=== PATIENT | male | born 1935 | race Caucasian/White ===

== ENCOUNTER 2017-11-19 12:56 | Emergency (ER) | payer OTHER, MEDICARE ==
[~2017-11-19] VITALS: Ht 190.5 cm; Wt 131.5 kg
--- NOTE | 2017-11-19 14:04 | ED GENERAL ADULT ---
History of Present Illness General Chief Complaint: Dizziness Stated Complaint: AFIB/DIZZINESS Source: patient Exam Limitations: no limitations Vital Signs & Intake/Output Vital Signs & Intake/Output Vital Signs Date Time Temp Pulse Resp B/P B/P Pulse O2 O2 Flow FiO2 Mean Ox Delivery Rate 11/19 1709 97.8 65 17 109/72 97 Room Air 11/19 1613 97.5 70 18 114/70 92 Room Air 11/19 1431 73 20 102/58 95 Room Air 11/19 1413 98.6 126 18 100/58 98 Room Air 11/19 1337 98.1 122 20 86/56 93 Room Air ED Intake and Output 11/20 0000 11/19 1200 Intake Total 0 Output Total Balance 0 Intake, Oral 0 Patient 290 lb Weight Weight Estimated Measurement Method Allergies Coded Allergies: Latex, Natural Rubber (Intermediate, SEVERE RASHES 11/19/17) Sulfa (Sulfonamide Antibiotics) (Mild, RASH 11/19/17) nitroglycerin (From NITRO-BID) (Mild, RASH 11/19/17) polymyxin B (Mild, UNKNOWN 11/19/17) trimethoprim (Mild, UNKNOWN 11/19/17) omeprazole (From PRILOSEC) (UNKNOWN 11/19/17) Reconcile Medications Albuterol Sulfate (Ventolin Hfa) 90 MCG HFA.AER.AD 2 PUF INH Q4-6 PRN PRN SHORTNESS OF BREATH (Reported) Amiodarone HCl 200 MG TABLET 0.5 TAB PO Q48 HEART (Reported) Amiodarone HCl 100 MG TABLET 0.5 TAB PO Q48 HEART (Reported) Cranberry Conc/Ascorbic Acid (Cranberry Plus Vitamin C Rust) 4,200 MG-20 MG CAPSULE 1 CAP PO DAILY VITAMIN SUPPORT (Reported) Cyanocobalamin (Vitamin B-12) 1,000 MCG TABLET 1 TAB PO DAILY VITAMIN SUPPORT (Reported) Dabigatran Etexilate Mesylat (Pradaxa) 150 MG CAPSULE 1 CAP PO BID BLOOD THINNER (Reported) Levothyroxine Sodium 50 MCG TABLET 1 TAB PO DAILY AC THYROID (Reported) Multivitamin (Daily Multiple Vitamin) 1 EACH TABLET 1 TAB PO DAILY VITAMIN SUPPORT (Reported) Pantoprazole Sodium 40 MG TABLET.DR 1 TAB PO DAILY GI (Reported) Paroxetine HCl 20 MG TABLET 1 TAB PO DAILY MENTAL HEALTH (Reported) Tamsulosin HCl 0.4 MG CAP.ER.24H 1 CAP PO DAILY PROSTATE (Reported) Triage Note: RECEIVED 81 YO MALE WITH HX OF AFIB AND COPD C/O DIZZINESS SINCE THIS AM GETTING UP, WORSE STANDING. PT REPORTS IRREGULAR PULSE WHICH IS NOT NORMAL AND GETTING SWEATY. EKG DONE UPON ARRIVAL TO THE ED, SHOWS AFIB WITH RVR, HR 122. B/P IN TRIAGE 86/56 Triage Nurses Notes Reviewed? yes Onset: Abrupt Duration: hour(s): Timing: recent history HPI: 11/19/17 2 PM 81-year-old male presents to the emergency department for dizziness and being lightheaded. He says he feels lightheaded when he sits up. He says he has a history of hypertension and paroxysmal A. fib. He's on Pradaxa. He denies any chest pain or shortness of breath. (Juan Antonio Schmidt DO) Past History Travel History Traveled to [place] past 21 day No Medical History Any Pertinent Medical History? see below for history Neurological: NONE EENT: NONE Cardiovascular: AFIB Respiratory: COPD Gastrointestinal: GERD Hepatic: NONE Renal: benign prost hyperplasia Musculoskeletal: NONE Psychiatric: NONE Endocrine: hypothyroidism Blood Disorders: NONE Cancer(s): NONE Surgical History Surgical History: non-contributory Psychosocial History What is your primary language Hebrew Tobacco Use: Never used Family History Hx Contributory? No (Juan Antonio Schmidt DO) Review of Systems Review of Systems Constitutional: Denies: fever. EENTM: Reports: no symptoms. Respiratory: Denies: short of breath. Cardiovascular: Reports: palpitations. Denies: chest pain. GI: Reports: no symptoms. Genitourinary: Reports: no symptoms. Musculoskeletal: Reports: no symptoms. Skin: Reports: no symptoms. Neurological/Psychological: Reports: no symptoms. Hematologic/Endocrine: Reports: no symptoms. Immunologic/Allergic: Reports: no symptoms. (Juan Antonio Schmidt DO) Physical Exam Physical Exam General Appearance: alert, awake, anxious, moderate distress Head: atraumatic, normal appearance Eyes: Bilateral: normal appearance, PERRL, EOMI. Ears, Nose, Throat: normal pharynx, normal ENT inspection Neck: normal inspection, supple Respiratory: normal breath sounds, chest non-tender, no respiratory distress Cardiovascular: irregularly irregular Peripheral Pulses: 3+ radial (R), 3+ radial (L) Gastrointestinal: soft, non-tender Back: normal inspection Extremities: pedal edema Neurologic/Psych: no motor/sensory deficits, awake, alert, oriented x 3 Skin: rash Core Measures ACS in differential dx? No CVA/TIA Diagnosis: No Sepsis Present: No Sepsis Focused Exam Completed? No (Juan Antonio Schmidt DO) Progress Differential Diagnoses I considered the following diagnoses in my evaluation of the patient: [A. fib orthostatic hypotension anemia probably acute coronary syndrome] Initial ED EKG: RAPID A. FIB (Juan Antonio Schmidt DO) Plan of Care: Orders Procedure Date/time Status TROPONIN LEVEL 11/19 1540 Complete EKG 11/19 1420 Active THYROID STIMULATING HORMONE 11/19 1339 Complete TROPONIN LEVEL 11/19 1339 Complete COMPREHENSIVE METABOLIC PANEL 11/19 1339 Complete CBC WITHOUT DIFFERENTIAL 11/19 1339 Complete EKG 11/19 1258 Active Laboratory Tests 11/19/17 1603: Troponin I 0.02 11/19/17 1430: RBC 4.70, MCV 91.6, MCH 31.3 H, MCHC 34.1, RDW 14.2, MPV 7.9, Gran % 81.7 H, Lymphocytes % 10.3 L, Monocytes % 7.3, Eosinophils % 0.5, Basophils % 0.2, Absolute Granulocytes 8.9 H, Absolute Lymphocytes 1.1 L, Absolute Monocytes 0.8 H, Absolute Eosinophils 0.1, Absolute Basophils 0 11/19/17 1408: Anion Gap 14, Estimated GFR 45 L, BUN/Creatinine Ratio 25.3 H, Glucose 165 H, Calcium 8.6, Total Bilirubin 0.8, AST 35, ALT 21, Alkaline Phosphatase 48, Troponin I 0.02, Total Protein 6.6, Albumin 3.6, Globulin 3.0, Albumin/Globulin Ratio 1.2, TSH 1.020 Comments: Patient broke to sinus rhythm. His repeat EKG shows normal sinus rhythm with nonspecific ST-T changes. Discussed with Dr. Zimmerman, increases amiodarone to 200 mg every day. Patient will follow-up with his community development planner in the office. (France MARROQUIN,Jermaine Galindo) Departure Departure Condition: Stable Clinical Impression Primary Impression: Rapid atrial fibrillation Referrals: Unknown (PCP/Family) Departure Forms: Customer Survey General Discharge Information Comments The patient was signed out to Dr. Hough at 2 PM. (Juan Antonio Schmidt DO) Departure Disposition: HOME OR SELF CARE Additional Instructions: Increase your amiodarone to 200 mg every day. Follow-up with her community development planner. Return if symptoms return or for any other concerns. (France MARROQUIN,Jermaine Galindo) Critical Care Note Critical Care Note Critical Care Time: 30-74 min (Juan Antonio Schmidt DO)
[2017-11-19] MEDS ORDERED: PRADAXA150 M2 PO (14:33)
[2017-11-19] MEDS ORDERED: TAMSULOSIN HCL0.4 M1 PO (14:34)
[2017-11-19] MEDS ORDERED: AMIODARONE HCL200 M2 PO (14:35)
[2017-11-19] MEDS ORDERED: AMIODARONE HCL100 M1 PO (14:35)
[2017-11-19] MEDS ORDERED: LEVOTHYROXINE50 MCG PO (14:36)
[2017-11-19] MEDS ORDERED: PAROXETINE HCL20 M1 PO (14:36)
[2017-11-19] MEDS ORDERED: PANTOPRAZOLE SO40 M1 PO (14:36)
[2017-11-19] MEDS ORDERED: DAILY MULTIPLE1 EACH PO (14:37)
[2017-11-19] MEDS ORDERED: VENTOLIN HFA18 GM INH (14:37)
[2017-11-19] MEDS ORDERED: VITAMIN B-121000 MC3 PO (14:38)
[2017-11-19] MEDS ORDERED: CRANBERRY PLUS1 EAC1 PO (14:39)
--- NOTE | 2017-11-19 14:40 | RADIOLOGY REPORT ---
EXAMINATION: XR PORTABLE CHEST CLINICAL INFORMATION: Shortness of breath. COMPARISON: None TECHNIQUE: Portable frontal view of the chest was obtained. FINDINGS: Lungs are symmetrically expanded. Minimal hazy opacity in the medial aspect of each lung base adjacent to pericardiac fat, likely minimal atelectasis. Linear streak of atelectasis in the left lateral base, as well. Probable 3 mm calcified granuloma within the left lung apex. No overt pulmonary consolidation. No pleural effusion or pneumothorax. Cardiac silhouette is normal in size. No cephalization of pulmonary venous flow or interstitial edema. Aortic arch is slightly uncoiled. Bones appear diffusely osteopenic. Mild osteoarthrosis of bilateral glenohumeral joints, high riding humeral heads (suggestive of chronic rotator cuff tears) and intact suture anchors in the greater tuberosity of the left humerus. IMPRESSION: - Minimal atelectasis suspected in lung bases. - No significant cardiopulmonary findings are detected on this single view exam.
[2017-11-19 14:45] LABS: ABSOLUTE BASOPHIL COUNT 0 /CUMM (0.0-0.2); ABSOLUTE EOSINOPHIL COUNT 0.1 /CUMM (0.0-0.7); ABSOLUTE GRANULOCYTE CT 8.9 /CUMM (1.4-6.5); ABSOLUTE LYMPH COUNT 1.1 /CUMM (1.2-3.4); ABSOLUTE MONOCYTE COUNT 0.8 /CUMM (0.10-0.60); BASOPHIL % 0.2 % (0.0-2.0); EOSINOPHIL % 0.5 % (0-5); GRANULOCYTE % 81.7 % (42.2-75.2); MEAN CORPUSCULAR HGB 31.3 PG (27.0-31.0); MEAN CORPUSCULAR HGB CONC 34.1 G/DL (33.0-37.0); MEAN CORPUSCULAR VOLUME 91.6 FL (80.0-94.0); MEAN PLATELET VOLUME 7.9 FL (7.4-10.4); PLATELET COUNT 268 /CUMM (130-400); RBC DISTRIBUTION WIDTH 14.2 % (11.5-14.5); WHITE BLOOD CELL COUNT 10.9 /CUMM (4.8-10.8)
[2017-11-19 17:09] VITALS: BP 109/72
== END 2017-11-19 17:09 ==
LOC: ERH 12:56
PROVIDERS: Physician Assistant Medical
DX: I48.91 Unspecified atrial fibrillation (principal); R42 Dizziness and giddiness; E03.9 Hypothyroidism, unspecified
CPT/HCPCS: 71045; 93005; 93010

== ENCOUNTER 2018-01-19 03:15 | Inpatient (IN) | payer OTHER, MEDICARE ==
[~2018-01-19] VITALS: Ht 188 cm; Wt 132.7 kg
[~2018-01-19 03:15] MED LIST: CRANBERRY PLUS1 EAC1 PO; DAILY MULTIPLE1 EACH PO; LEVOTHYROXINE50 MCG PO; PANTOPRAZOLE SO40 M1 PO; PAROXETINE HCL20 M1 PO; PRADAXA150 M2 PO; TAMSULOSIN HCL0.4 M1 PO; VENTOLIN HFA18 GM INH; VITAMIN B-121000 MC3 PO
--- NOTE | 2018-01-19 03:21 | ED GENERAL ADULT ---
See Addendum History of Present Illness General Chief Complaint: General Adult Stated Complaint: BIBA AFIB Source: patient, family Exam Limitations: no limitations Vital Signs & Intake/Output Vital Signs & Intake/Output Vital Signs Date Time Temp Pulse Resp B/P B/P Pulse O2 O2 Flow FiO2 Mean Ox Delivery Rate 01/19 0856 96 Nasal 2.0L Cannula 01/19 0826 98.0 68 20 134/78 95 Nasal 2.0L Cannula 01/19 0635 98.2 58 18 142/77 95 Nasal 2.0L Cannula 01/19 0503 61 20 122/78 98 01/19 0322 98.1 116 18 125/75 93 Nasal 2.0L Cannula Allergies Coded Allergies: Latex, Natural Rubber (Intermediate, SEVERE RASHES 11/19/17) Sulfa (Sulfonamide Antibiotics) (Mild, RASH 11/19/17) nitroglycerin (From NITRO-BID) (Mild, RASH 11/19/17) polymyxin B (Mild, UNKNOWN 11/19/17) trimethoprim (Mild, UNKNOWN 11/19/17) omeprazole (From PRILOSEC) (UNKNOWN 11/19/17) Triage Nurses Notes Reviewed? yes HPI: Mr. Foley is a 82-year-old male with a past medical history of atrial fibrillation, COPD, BIBA to the ED complaining of palpitations and racing heartbeat. On arrival, he was stable, AAOx3, offering no acute complains. He was found to be in a-fib, HR 100-110s, no chest pain though increasing SOB with minimal exertion. He does endorse paroxysmal nocturnal dyspnea, sleeps propped up with two pillows. Pt denies lightheadedness, LOC, focal neurologic deficit. Of note pt was recently discharged from [facility] for E.coli UTI where he received IV antibiotics as per pt. He offers no other acute complains. Pt takes amiodarone, dabigatran and diltiazem. (Fred Snell MD,[facility]) Onset: Abrupt Duration: hour(s): Timing: recent history (Juan Antonio Schmidt DO) Reconcile Medications Albuterol Sulfate (Ventolin Hfa) 90 MCG HFA.AER.AD 2 PUF INH Q4-6 PRN PRN SHORTNESS OF BREATH (Reported) Amiodarone HCl 400 MG TABLET 1 TAB PO DAILY AFIB (Reported) Cefuroxime Axetil (Cefuroxime) 500 MG TABLET 1 TAB PO BID UTI (Reported) Cranberry Conc/Ascorbic Acid (Cranberry Plus Vitamin C Sftgl) 4,200 MG-20 MG CAPSULE 1 CAP PO DAILY VITAMIN SUPPORT (Reported) Cyanocobalamin (Vitamin B-12) 1,000 MCG TABLET 1 TAB PO DAILY VITAMIN SUPPORT (Reported) Dabigatran Etexilate Mesylat (Pradaxa) 150 MG CAPSULE 1 CAP PO BID BLOOD THINNER (Reported) Lactobacillus Acidophilus (Acidophilus) 1 EACH CAPSULE 2 CAP PO DAILY PROBIOTIC Levothyroxine Sodium 50 MCG TABLET 1 TAB PO DAILY AC THYROID (Reported) Multivitamin (Daily Multiple Vitamin) 1 EACH TABLET 1 TAB PO DAILY VITAMIN SUPPORT (Reported) Pantoprazole Sodium 40 MG TABLET.DR 1 TAB PO DAILY GI (Reported) Paroxetine HCl 20 MG TABLET 1 TAB PO DAILY MENTAL HEALTH (Reported) Tamsulosin HCl 0.4 MG CAP.ER.24H 1 CAP PO DAILY PROSTATE (Reported) (Richard Garza MD) Past History Travel History Traveled to [place] past 21 day No Medical History Any Pertinent Medical History? see below for history Neurological: NONE EENT: NONE Cardiovascular: AFIB Respiratory: COPD Gastrointestinal: GERD Hepatic: NONE Renal: benign prost hyperplasia Musculoskeletal: NONE Psychiatric: NONE Endocrine: hypothyroidism Blood Disorders: NONE Cancer(s): NONE Surgical History Surgical History: non-contributory Psychosocial History What is your primary language Montserratian Family History Hx Contributory? No (Fred Snell MD,[place]) Review of Systems Review of Systems Constitutional: Reports: no symptoms. EENTM: Reports: no symptoms. Respiratory: Reports: no symptoms. Cardiovascular: Reports: see HPI. GI: Reports: no symptoms. Genitourinary: Reports: no symptoms. Musculoskeletal: Reports: no symptoms. Skin: Reports: no symptoms. Neurological/Psychological: Reports: no symptoms. Hematologic/Endocrine: Reports: no symptoms. Immunologic/Allergic: Reports: no symptoms. All Other Systems: Reviewed and Negative (Fred Snell MD,[place]) Physical Exam Physical Exam General Appearance: well developed/nourished, no apparent distress, alert, awake , comfortable Head: atraumatic, normal appearance Eyes: Bilateral: normal appearance, PERRL, EOMI. 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 Yes CVA/TIA Diagnosis: No Sepsis Present: No Sepsis Focused Exam Completed? No (Fred Snell MD,[place]) Progress Differential Diagnoses I considered the following diagnoses in my evaluation of the patient: [Afib] Plan of Care: Orders Procedure Date/time Status CBC WITHOUT DIFFERENTIAL 01/20 0600 Active BASIC ELECTROLYTES PLUS BUN&CR 01/20 0600 Active Consistent Carbohydrate 1 01/19 L Active Heart Healthy Diet 01/19 B Complete TROPONIN LEVEL 01/19 1400 Active EKG 01/19 1400 Active ECHOCARDIOGRAM 01/19 1222 Active Pathway - chart 01/19 1219 Active House Staff 01/19 1219 Active Patient Data 01/19 1219 Active Patient Data 01/19 1113 Active Patient Data 01/19 0929 Active BLOOD CULTURE 01/19 0849 Active OXYGEN SETUP (GEN) 01/19 0847 Active Saline Lock 01/19 0847 Active Admit to inpatient 01/19 0847 Active Vital Signs 01/19 0847 Active Activity/Ambulation 01/19 0847 Active Code Status 01/19 0847 Active TROPONIN LEVEL 01/19 0730 Complete Intake & Output 01/19 0437 Active TROPONIN LEVEL 01/19 0347 Complete D-DIMER 01/19 0347 Complete COMPREHENSIVE METABOLIC PANEL 01/19 0347 Complete CBC WITHOUT DIFFERENTIAL 01/19 0347 Complete EKG 01/19 0316 Active VTE Mechanical Prophylaxis 01/19 UNK Active Telemetry/Assembler Corncob Pipes 01/19 UNK Active Hemoccult 01/[address] CHEST WO IV CONTRAST 01/19 UNK Active Current Medications Sig/Kennedy Start time Last Medication Dose Stop Time Status Admin Diltiazem HCl 120 MG DAILY 01/19 1232 UNVr (Cardizem CD) Albuterol Sulfate 2 PUF Q4-6 PRN PRN 01/19 1230 AC (Ventolin) Amiodarone HCl 400 MG DAILY 01/19 1230 UNVr (Cordarone) Omeprazole 40 MG DAILY AC 01/19 1230 UNVr (Prilosec) Dabigatran 150 MG BID 01/19 1229 UNVr (PRADAXA) Levothyroxine Sodium 0.05 MG DAILY AC 01/19 122 AC (Synthroid) Paroxetine HCl 20 MG DAILY 01/19 1225 UNVr (Paxil) Tamsulosin HCl 0.4 MG DAILY 01/19 1225 AC (Flomax) Cyanocobalamin 1,000 MCG DAILY 01/19 1224 AC (Vitamin B12) Laboratory Tests 01/19/18 0725: Troponin I < 0.01 01/19/18 0400: D-Dimer High Sensitivty 315 H, CBC w Diff NO MAN DIFF REQ, RBC 3.79 L, MCV 91.7, MCH 31.0, MCHC 33.8, RDW 14.7 H, MPV 7.0 L, Gran % 66.6, Lymphocytes % 22.8, Monocytes % 7.4, Eosinophils % 2.7, Basophils % 0.5, Absolute Granulocytes 4.7, Absolute Lymphocytes 1.6, Absolute Monocytes 0.5, Absolute Eosinophils 0.2, Absolute Basophils 0 01/19/18 0347: Anion Gap 8, Estimated GFR > 60, BUN/Creatinine Ratio 20.0, Glucose 121 H, Calcium 8.3 L, Total Bilirubin 1.0, AST 46, ALT 70, Alkaline Phosphatase 37, Troponin I < 0.01, Total Protein 6.5, Albumin 3.5, Globulin 3.0, Albumin/ Globulin Ratio 1.2 Microbiology 01/19 0915 BLOOD: Blood Culture - RECD 01/19 0857 BLOOD: Blood Culture - RECD 82 y/o M with PMH of a fib and COPD, comes in to the ED c/o palpitations, and feelings of heart racing. He spontaneously converted to NSR. First set of troponin was negative, initial EKG showed a fib with a rate of 100-110s, he is on a surveillance system monitor. Patient does endorse increasing SOB on minimal exertion. His age-adjusted d-dimer is negative; he is on cardizem, amiodarone and dabigatran. Initial ED EKG: AFIB (Fred Snell MD,[facility]) Differential Diagnoses I considered the following diagnoses in my evaluation of the patient: [A. fib, acute coronary syndrome, room air embolism, pneumothorax, other dysrhythmia] (Juan Antonio Schmidt DO) Diagnostic Imaging: Viewed by Me: Radiology Read. Discussed w/RAD: Radiology Read. CXR Impression: Small pleural effusions. Increased hazy right basilar opacity may represent atelectasis or pneumonia. Rhythm Strip: normal sinus rhythm (Richard Garza MD) Departure Departure Disposition: HOME OR SELF CARE Condition: Stable Clinical Impression Primary Impression: Atrial fibrillation Referrals: Unknown Additional Instructions: Please follow up with your PCP about this ED visit. Please follow up with your data review specialist within 1 week. Should symptoms reappear or worsen, please return to the Emergency Department. Departure Forms: Customer Survey General Discharge Information (Fred Snell MD,[facility]) Departure Comments 01/19/18 I've seen and personally examined the patient and I agree with the medical assistant internal medicine's evaluation above. 82-year-old man with past medical history of paroxysmal A. fib who is scheduled to have a stress test with his data review specialist this week. He says he woke up with rapid heart rate. His heart rate was 110. He denies any chest pain or shortness of breath. Currently he is in A. fib at a heart rate of 104. Repeat EKG shows sinus rhythm. Age-adjusted d-dimer is negative. Assuming serial troponins are negative. He may follow-up with his data review specialist as scheduled. The patient was signed out to Dr. Garza at 7 AM. (Juan Antonio Schmidt DO) Departure Prescriptions: Current Visit Scripts Lactobacillus Acidophilus (Acidophilus) 2 CAP PO DAILY #28 TAB Resident Co-Sign Statement Statement: ED Attending supervision documentation- x I saw and evaluated the patient. I have also reviewed all the pertinent lab results and diagnostic results. I agree with the findings and the plan of care as documented in the Resident's documentation. [] I have reviewed the ED Record and agree with the Resident's documentation. [] Additions or exceptions (if any) to the Resident's note and plan are summarized below: [] (Richard Garza MD) Critical Care Note Critical Care Note Critical Care Time: 30-74 min (Juan Antonio Schmidt DO) ED Attending Observation Initial Observation Note: I have seen and personally examined AMBER FOLEY on 01/19/18 at 0415. I agree with the current emergency department documentation. The disposition (admission or discharge) is uncertain at this time, he needs a period of observation for the following reason(s): The ED Nurse caring for this patient has been personally informed as to what the patient is being observed for. (Fred Snell MD,[facility])
[2018-01-19] MEDS ORDERED: CEFUROXIME500 MG PO (04:03)
[2018-01-19 04:07] LABS: ABSOLUTE BASOPHIL COUNT 0 /CUMM (0.0-0.2); ABSOLUTE EOSINOPHIL COUNT 0.2 /CUMM (0.0-0.7); ABSOLUTE GRANULOCYTE CT 4.7 /CUMM (1.4-6.5); ABSOLUTE LYMPH COUNT 1.6 /CUMM (1.2-3.4); ABSOLUTE MONOCYTE COUNT 0.5 /CUMM (0.10-0.60); BASOPHIL % 0.5 % (0.0-2.0); EOSINOPHIL % 2.7 % (0-5); GRANULOCYTE % 66.6 % (42.2-75.2); HEMATOCRIT 34.7 % (42-52); MEAN CORPUSCULAR HGB CONC 33.8 G/DL (33.0-37.0); MEAN CORPUSCULAR VOLUME 91.7 FL (80.0-94.0); PLATELET COUNT 302 /CUMM (130-400); RBC DISTRIBUTION WIDTH 14.7 % (11.5-14.5); RED BLOOD CELL CT 3.79 /CUMM (4.70-6.10); WHITE BLOOD CELL COUNT 7.1 /CUMM (4.8-10.8)
--- NOTE | 2018-01-19 04:28 | RADIOLOGY REPORT ---
EXAMINATION: XR CHEST CLINICAL INFORMATION: Palpitations COMPARISON: 11/19/2017 TECHNIQUE: 2 views of the chest were obtained. FINDINGS: The lungs are well expanded. Increased hazy right basilar opacity. Small pleural effusions. No pneumothorax. Degenerative changes throughout the spine. The cardiomediastinal silhouette is unremarkable. IMPRESSION: Small pleural effusions. Increased hazy right basilar opacity may represent atelectasis or pneumonia.
--- NOTE | 2018-01-19 10:43 | History & Physical ---
Pipo MARROQUIN,Ana Rosa 01/19/18 1043: General Information and HPI MD Statement: I have seen and personally examined AMBER FOLEY and documented this H&P. The patient is a 82 year old M who presented with a patient stated chief complaint of palpitations, increasing shortness of breath Source of Information: patient, old records Exam Limitations: no limitations History of Present Illness: This is a 82-year-old male with a past medical history significant for A. fib on amiodarone, pradaxa, and diltiazem, COPD, BPH, hypothyroidism on levothyroxine, GERD that presents with complaints of palpitations and increasing shortness of breath with minimal exertion. Both of these complaints have been going on for a while but have been worsening recently. The patient last saw his biomedical engineering supervisor on Friday and they had an echo and stress test planned for this week. However as the patient had continuing and worsening symptoms, he was worried and came to the ED before he can get his test done. The patient states that prior to this year, he used to be in and out of A. fib and was unaware. However, now, he states that he feels a "anderson up my body from right chest to my neck and head and frequent racing heart". The patient sees biomedical engineering supervisor Alex Maharaj out of [place] and Channing Wilson as his squeezer operator out of [place]. In addition the patient's palpitations and shortness of breath on exertion, he also complains of shortness of breath at night requiring the use of 2 pillows. The patient is not usually on any home oxygen. The patient was here in the emergency room for similar complaints a few months ago, was found to have converted to normal sinus rhythm. The patient has had many instances where he has been in and out of A. fib. The patient was recently admitted to [facility] for sepsis secondary to UTI, found to be Escherichia coli and treated with cefuroxime 500 mg twice a day once discharged. At that time the patient was put on diltiazem again after it had been stopped for some time, patient unsure as to why. The patient complains that he has had a right-sided headache all of last week and the past Friday 1 bout of left-sided chest and shoulder discomfort. He also complains of an ongoing dry cough with chronic postnasal drip. The patient states that he has been on a low carb diet for the past 3 weeks and lost 7 pounds during the first 2 weeks of it. The patient does not have diabetes. The patient denies any hematuria or hematochezia/melena. Of note, the patient experienced a rectal bleed 3-4 months ago, was seen by Moshe Lehman M.D., strainer cleaner out of [place], who admitted him. The patient did not have any transfusion but was noted to go into A. fib while there. Colonoscopy was done and found diverticulosis. Leading up to this admission, the patient had had a few falls, describes preceding dizziness. The patient currently describes some mild right-sided abdominal pain that is worse on palpation. He has previously had hernia surgery 13 years ago. The patient's biomedical engineering supervisor Dr. Rodríguez is located at [phone] [address] his squee[address] operator Dr[address] Wilson is located at [phone] The patient denies any dizziness, lightheadedness, loss of consciousness, focal neuro deficits. He usually ambulates with a cane secondary to his knee arthritis. The patient smoked for 20 years 1 pack per week but quit about 20 years ago. He has never done any illicit drugs and drinks about 1 bottle of beer and one mixed drink a month. Allergies/Medications Allergies: Coded Allergies: Latex, Natural Rubber (Intermediate, SEVERE RASHES 11/19/17) Sulfa (Sulfonamide Antibiotics) (Mild, RASH 11/19/17) nitroglycerin (From NITRO-BID) (Mild, RASH 11/19/17) polymyxin B (Mild, UNKNOWN 11/19/17) trimethoprim (Mild, UNKNOWN 11/19/17) omeprazole (From PRILOSEC) (UNKNOWN 11/19/17) Home Med list Albuterol Sulfate (Ventolin Hfa) 90 MCG HFA.AER.AD 2 PUF INH Q4-6 PRN PRN SHORTNESS OF BREATH (Reported) Amiodarone HCl 400 MG TABLET 1 TAB PO DAILY AFIB (Reported) Cefuroxime Axetil (Cefuroxime) 500 MG TABLET 1 TAB PO BID UTI (Reported) Cranberry Conc/Ascorbic Acid (Cranberry Plus Vitamin C Sftgl) 4,200 MG-20 MG CAPSULE 1 CAP PO DAILY VITAMIN SUPPORT (Reported) Cyanocobalamin (Vitamin B-12) 1,000 MCG TABLET 1 TAB PO DAILY VITAMIN SUPPORT (Reported) Dabigatran Etexilate Mesylat (Pradaxa) 150 MG CAPSULE 1 CAP PO BID BLOOD THINNER (Reported) Lactobacillus Acidophilus (Acidophilus) 1 EACH CAPSULE 2 CAP PO DAILY PROBIOTIC Levothyroxine Sodium 50 MCG TABLET 1 TAB PO DAILY AC THYROID (Reported) Multivitamin (Daily Multiple Vitamin) 1 EACH TABLET 1 TAB PO DAILY VITAMIN SUPPORT (Reported) Pantoprazole Sodium 40 MG TABLET.DR 1 TAB PO DAILY GI (Reported) Paroxetine HCl 20 MG TABLET 1 TAB PO DAILY MENTAL HEALTH (Reported) Tamsulosin HCl 0.4 MG CAP.ER.24H 1 CAP PO DAILY PROSTATE (Reported) Compliance With Home Meds: GOOD Past History Travel History Traveled to [place] past 21 day No Medical History Neurological: NONE EENT: NONE Cardiovascular: AFIB Respiratory: COPD Gastrointestinal: GERD Hepatic: NONE Renal: benign prost hyperplasia Musculoskeletal: NONE Psychiatric: NONE Endocrine: hypothyroidism Blood Disorders: NONE Cancer(s): NONE Surgical History Surgical History: non-contributory Past Family/Social History Family History Relations & Conditions if any Family history was reviewed; no changes noted. Psychosocial History Smoking Status: Former Smoker ETOH Use: denies use Illicit Drug Use: denies illicit drug use Review of Systems Review of Systems Constitutional: Reports: no symptoms. Cardiovascular: Reports: see HPI, palpitations. Respiratory: Reports: cough, short of breath. GI: Reports: abdominal pain. Genitourinary: Reports: no symptoms. Musculoskeletal: Reports: joint pain. Skin: Reports: no symptoms. Neurological/Psychological: Reports: no symptoms. Hematologic/Endocrine: Reports: no symptoms. Exam & Diagnostic Data Last 24 Hrs of Vital Signs/I&O Vital Signs Date Time Temp Pulse Resp B/P B/P Pulse O2 O2 Flow FiO2 Mean Ox Delivery Rate 01/19 1632 Nasal 2.0L Cannula 01/19 1500 98.5 62 20 118/60 96 01/19 1439 97.4 58 20 141/88 95 Nasal 2.0L Cannula 01/19 1338 98.1 62 20 130/76 01/19 1252 98.1 62 20 130/76 95 Nasal 2.0L Cannula 01/19 0856 96 Nasal 2.0L Cannula 01/19 0826 98.0 68 20 134/78 95 Nasal 2.0L Cannula 01/19 0635 98.2 58 18 142/77 95 Nasal 2.0L Cannula 01/19 0503 61 20 122/78 98 01/19 0322 98.1 116 18 125/75 93 Nasal 2.0L Cannula Intake & Output 01/19 1600 01/19 0800 01/19 0000 Intake Total Output Total 300 Balance -300 Output, Urine 300 Patient 192 lb Weight Physical Exam General Appearance Alert, Oriented X3, Cooperative, No Acute Distress Skin No Rashes, No Breakdown, No Significant Lesion Skin Temp/Moisture Exam: Warm/Dry Sepsis Skin Exam (color): Normal for Ethnicity HEENT Atraumatic, PERRLA, EOMI, Mucous Membr. moist/pink Cardiovascular Regular Rate, Normal S1, Normal S2, No Murmurs Lungs Clear to Auscultation, Normal Air Movement Abdomen Normal Bowel Sounds, Soft, mild right sided pain on palpation Neurological Normal Speech Extremities No Clubbing, No Cyanosis, No Edema, Normal Pulses Vascular Normal Pulses, Pulses Symmetrical Last 24 Hrs of Labs/Héctor: Laboratory Tests 01/19/18 1432: Troponin I < 0.01 01/19/18 0725: Troponin I < 0.01 01/19/18 0400: D-Dimer High Sensitivty 315 H, CBC w Diff NO MAN DIFF REQ, RBC 3.79 L, MCV 91.7, MCH 31.0, MCHC 33.8, RDW 14.7 H, MPV 7.0 L, Gran % 66.6, Lymphocytes % 22.8, Monocytes % 7.4, Eosinophils % 2.7, Basophils % 0.5, Absolute Granulocytes 4.7, Absolute Lymphocytes 1.6, Absolute Monocytes 0.5, Absolute Eosinophils 0.2, Absolute Basophils 0 01/19/18 0347: Anion Gap 8, Estimated GFR > 60, BUN/Creatinine Ratio 20.0, Glucose 121 H, Calcium 8.3 L, Total Bilirubin 1.0, AST 46, ALT 70, Alkaline Phosphatase 37, Troponin I < 0.01, Total Protein 6.5, Albumin 3.5, Globulin 3.0, Albumin/ Globulin Ratio 1.2, TSH 1.920, Free T4 1.99 H, Thyroxine (T4) 9.5, Total T3 0.79 L Microbiology 01/19 0915 BLOOD: Blood Culture - RECD 01/19 08 BLOOD: Blood Culture - RECD Assessment/Plan Assessment: This is a 82-year-old male with a past medical history significant for paroxysmal A. fib on amiodarone, pradaxa, and diltiazem, COPD, BPH, hypothyroidism on levothyroxine, GERD that presents with complaints of palpitations and increasing shortness of breath with minimal exertion. The patient also complained of a dry cough and a right headache during last week. The patient was supposed to have a cardiac workup done this week with his regular biomedical engineering supervisor. The patient notes a recent admission at [facility] for sepsis secondary to UTI, discharged on cefuroxime 500 mg twice a day. At that time he was restarted on diltiazem after having been off of it for some time. 3-4 months ago he had an admission at [place] for rectal bleed, found to have diverticulosis. Denies any recent melena or hematochezia. EKG showed afib at a rate of 116 no evidence of ACS, repeat EKG showed that he had reverted to NSR. CXR showed a small pleural effusion, increased hazy right basilar opacity that represents atelectasis or pneumonia. His vitals in the ED were found to be temperature 98.1, heart rate 116, respiratory rate 18, blood pressure 127/75, 93% oxygen saturation on room air. Hb was found to have decreased from 14.7 to 11.7 over the past 2 months. MCV 91. Age adjusted ddimer was negative. His K was 3.4. Troponins x2 were found to be negative. Assessment -Palpitations secondary to paroxysmal A. fib on amiodarone, diltiazem, pradaxa -Recent admission for sepsis secondary to UTI, discharged on cefuroxime 500 mg twice a day -Normocytic anemia likely secondary to acute GI bleed -Dry cough and potential evidence of pneumonia on chest x-ray Plan -Patient admitted to telemetry for evaluation and treatment -We have placed a cardiac consult with Dr. Stroud's group -I have placed a call to patient's regular biomedical engineering supervisor and am awaiting callback , see phone numbers in HPI -Echocardiogram -1 more set of EKG and troponins at 2 PM -Continue patient's pradaxa, amiodarone 400 mg daily and diltiazem CD 120 mg -Continue supplemental O2 for now -Monitor BEP and replete electrolytes including magnesium -CT of the chest contrast with plan to treat pneumonia if found, if no evidence of pneumonia continue the patient's cefuroxime 500 mg twice a day -Thyroid function tests -Guaiac stools and DC Pradaxa if guaiac positive Patient is full code Consistent carbohydrate diet (patient requested, does not have diabetes) Patient is full code As Ranked By This Provider Problem List: 1. Atrial fibrillation Core Measures/Misc (02/23) Acute Coronary Syndrome ACS Diagnosis: No Congestive Heart Failure Congestive Heart Failure Diagnosis No Cerebrovascular Accident CVA/TIA Diagnosis: No VTE (View Protocol) VTE Risk Factors Acute Medical Illness No Mechanical VTE Prophylaxis d/t N/A MechProphylax Ordered No VTE Pharm Prophylaxis d/t NA PharmProphylax ordered Sepsis (View protocol) Sepsis Present: No If YES complete Sepsis Event Note If YES complete Sepsis Event Note Ratna Clark MD 01/19/18 1258: Core Measures/Misc (02/23) Sepsis (View protocol) If YES complete Sepsis Event Note If YES complete Sepsis Event Note Attending MD Review Statement Attending Statement Attending MD Statement: examined this patient, discuss w/resident/PA/[employer] ENC[employer]ER, agreed w/resident/PA/[employer]ING ENCASER, reviewed EMR data (avail), discussed with nursing, reviewed images, amended to note Attending Assessment/Plan: 82-year-old male with past medical history significant for paroxysmal A. fib, history of diverticulitis, history of GERD, hypertension, history of GI bleeding in the past, history of gout, hypothyroidism, recently admitted to [facility] with UTI and bacteremia and got treated with initially IV and then discharged on oral antibiotics cefuroxime, presented to the emergency room earlier in the morning as he was feeling rushing of blood from his chest into his neck, palpitations and racing heartbeat. Patient states that whenever he goes into A. fib he develops this kind of sensations. Patient does have history of paroxysmal A. fib and he goes in and out. He was also evaluated by his biomedical engineering supervisor during his stay in [facility] which was last week and at that point his amiodarone dose was increased to 400 mg daily and he was also started on Cardizem CD 120 mg daily. Patient said that he was scheduled to get echocardiogram as well as stress test performed by his biomedical engineering supervisor as an outpatient. Patient was found to have atrial fibrillation with somewhat rapid response upon initial presentation to the emergency room but did convert back to sinus rhythm. Chest x-ray showed possibility of atelectasis versus pneumonia and patient received IV antibiotics. He did complain of dry cough over the weekend but denies any sputum production. He did complain of progressively feeling short of breath over the course of few weeks. He does complain of dyspnea on exertion. He does not use oxygen at home. He denies any chest pain. He did complain of mild abdominal discomfort especially in the right side. Vital Signs Date Time Temp Pulse Resp B/P B/P Pulse O2 O2 Flow FiO2 Mean Ox Delivery Rate 01/19 1252 98.1 62 20 130/76 95 Nasal 2.0L Cannula 01/19 0856 96 Nasal 2.0L Cannula 01/19 0826 98.0 68 20 134/78 95 Nasal 2.0L Cannula 01/19 0635 98.2 58 18 142/77 95 Nasal 2.0L Cannula 01/19 0503 61 20 122/78 98 01/19 0322 98.1 116 18 125/75 93 Nasal 2.0L Cannula on exam: aox3, nad. cv; s1,s2, rrr resp; decrease bs at b/l bases. abd; soft, mild discomfort on right sided abd palpation, non tender as such, bs+ ext; 1+ edema Laboratory Tests 01/19 01/19 01/19 0725 0400 0347 Chemistry Sodium (137 - 145 mmol/L) 140 Potassium (3.5 - 5.1 mmol/L) 3.4 L Chloride (98 - 107 mmol/L) 102 Carbon Dioxide (22 - 30 mmol/L) 29 Anion Gap (5 - 16) 8 BUN (9 - 20 mg/dL) 18 Creatinine (0.7 - 1.2 mg/dL) 0.9 Estimated GFR (>60 ml/min) > 60 BUN/Creatinine Ratio (7 - 25 %) 20.0 Glucose (65 - 99 mg/dL) 121 H Calcium (8.4 - 10.2 mg/dL) 8.3 L Total Bilirubin (0.2 - 1.3 mg/dL) 1.0 AST (17 - 59 U/L) 46 ALT (21 - 72 U/L) 70 Alkaline Phosphatase (< 127 U/L) 37 Troponin I (<0.11 ng/ml) < 0.01 < 0.01 Total Protein (6.3 - 8.2 g/dL) 6.5 Albumin (3.5 - 5.0 g/dL) 3.5 Globulin (1.9 - 4.2 gm/dL) 3.0 Albumin/Globulin Ratio (1.1 - 2.2 %) 1.2 Coagulation D-Dimer High Sensitivty (0 - 243 ng/ml) 315 H Hematology CBC w Diff NO MAN DIFF REQ WBC (4.8 - 10.8 /CUMM) 7.1 RBC (4.70 - 6.10 /CUMM) 3.79 L Hgb (14.0 - 18.0 G/DL) 11.7 L Hct (42 - 52 %) 34.7 L MCV (80.0 - 94.0 FL) 91.7 MCH (27.0 - 31.0 PG) 31.0 MCHC (33.0 - 37.0 G/DL) 33.8 RDW (11.5 - 14.5 %) 14.7 H Plt Count (130 - 400 /CUMM) 302 MPV (7.4 - 10.4 FL) 7.0 L Gran % (42.2 - 75.2 %) 66.6 Lymphocytes % (20.5 - 51.1 %) 22.8 Monocytes % (1.7 - 9.3 %) 7.4 Eosinophils % (0 - 5 %) 2.7 Basophils % (0.0 - 2.0 %) 0.5 Absolute Granulocytes (1.4 - 6.5 /CUMM) 4.7 Absolute Lymphocytes (1.2 - 3.4 /CUMM) 1.6 Absolute Monocytes (0.10 - 0.60 /CUMM) 0.5 Absolute Eosinophils (0.0 - 0.7 /CUMM) 0.2 Absolute Basophils (0.0 - 0.2 /CUMM) 0 EKG: Did show atrial fibrillation. CXR: IMPRESSION: Small pleural effusions. Increased hazy right basilar opacity may represent atelectasis or pneumonia. A/P: 82-year-old male with past medical history significant for paroxysmal A. fib, history of diverticulitis, history of GERD, hypertension, history of GI bleeding in the past, history of gout, hypothyroidism, recently admitted to [facility] with UTI and bacteremia and got treated with initially IV and then discharged on oral antibiotics cefuroxime will be admitted to telemetry with atrial fibrillation with somewhat rapid ventricular response but now converted to sinus rhythm. It is unclear whether patient went into A. fib because of possibility of pneumonia versus bronchitis or from previous recent infection of UTI and bacteremia. Patient did receive IV antibiotics in the emergency room. Clinical presentation is not consistent with pneumonia. I will do a noncontrast CT chest to see if there is any infiltrate. If patient has pneumonia then he will be treated with IV antibiotics otherwise I will just continue him on his oral antibiotics cefuroxime that he was started at [facility] to complete the course. As noted above, patient's amiodarone dose was increased by his biomedical engineering supervisor Isra Maharaj. His primary care doctor is Dr. Ollie Maldonado. He was also started on Cardizem CD 120 mg which should be continued. Please obtain echocardiogram. Please follow-up on the last set of troponin and please consult cardiology also. H&H is slightly on the lower end, will do guaiac stool. Will continue Pradaxa for now but if stool guaiac positive then we can stop it. Please also check thyroid function tests. Patient also takes levothyroxine which can be continued. DVT prophylaxis: Pradaxa. Patient is a DNR/DNI.
[2018-01-19] MEDS ORDERED: AMIODARONE HCL400 M1 PO (12:28)
[2018-01-19] MEDS ORDERED: ACIDOPHILUS1 EACH PO ×2 (12:31→12:32)
[2018-01-19 15:00] VITALS: BP 118/60
--- NOTE | 2018-01-19 15:35 | CT SCAN REPORT ---
EXAMINATION: CT CHEST WITHOUT CONTRAST CLINICAL INFORMATION: Question pneumonia. COMPARISON: Chest x-ray 01/19/2018. TECHNIQUE: Multidetector volumetric CT imaging of the chest was done. Axial MIP volume rendering provided. Sagittal and coronal reformatted images were obtained. DLP: 606 mGy-cm FINDINGS: LUNGS: Paraseptal emphysema at the apices. Scattered calcified granulomas bilaterally. No suspicious mass lesion. The hazy opacity at the right lung base is caused by a diaphragmatic hernia containing retroperitoneal fat. There is mild compressive atelectasis secondarily. No suspicious mass lesion. MEDIASTINUM: No adenopathy. LAD coronary artery calcium. PLEURA: There is no pleural effusion. No pleural mass or thickening. AXILLA: No lymphadenopathy. UPPER ABDOMEN: Small parapelvic cysts in the left kidney. OSSEOUS STRUCTURES: Degenerative changes in the thoracic spine. There is focal kyphosis in the mid thoracic spine at T8 related to a mild anterior wedge compression deformity that appears chronic. 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 Mild associated atelectasis. No evidence of pneumonia.
[2018-01-19 22:07] VITALS: BP 136/80
[2018-01-20 06:58] VITALS: BP 136/86
[2018-01-20 07:31] LABS: ABSOLUTE BASOPHIL COUNT 0 /CUMM (0.0-0.2); ABSOLUTE EOSINOPHIL COUNT 0.2 /CUMM (0.0-0.7); ABSOLUTE GRANULOCYTE CT 4.6 /CUMM (1.4-6.5); ABSOLUTE LYMPH COUNT 1.4 /CUMM (1.2-3.4); ABSOLUTE MONOCYTE COUNT 0.5 /CUMM (0.10-0.60); BASOPHIL % 0.3 % (0.0-2.0); EOSINOPHIL % 2.7 % (0-5); GRANULOCYTE % 69.3 % (42.2-75.2); HEMATOCRIT 34.2 % (42-52); MEAN CORPUSCULAR HGB CONC 33.9 G/DL (33.0-37.0); MEAN CORPUSCULAR VOLUME 91.6 FL (80.0-94.0); MEAN PLATELET VOLUME 7.5 FL (7.4-10.4); PLATELET COUNT 293 /CUMM (130-400); RBC DISTRIBUTION WIDTH 14.9 % (11.5-14.5); RED BLOOD CELL CT 3.73 /CUMM (4.70-6.10); WHITE BLOOD CELL COUNT 6.6 /CUMM (4.8-10.8)
--- NOTE | 2018-01-20 10:02 | PN- Housestaff ---
Graeme Franz 01/20/18 0948: Subjective Follow-up For: Paroxysmal A. fib Shortness of breath Complaints: no complaints Tele-Events Since Last Visit: Sinus bradycardia and sinus rhythm 56-63 bpm no overnight events Subjective: Review the patient lying comfortably on the bed he reports to have slept very well he denies any chest pain palpitations or shortness of breath overnight. The patient reports that he has been eating and finishing his meals well he has no fevers or chills overnight. His only concern is he was scheduled to have a stress test and echocardiogram as an outpatient and this admission is interfering with that. Review of Systems Constitutional: Denies: chills, fever. Cardiovascular: Denies: chest pain, palpitations. Respiratory: Denies: cough, short of breath. Gastrointestinal: Denies: abdominal pain, nausea, vomiting. Genitourinary: Denies: no symptoms. Musculoskeletal: Denies: no symptoms. Skin: Denies: no symptoms. Objective Last 24 Hrs of Vital Signs/I&O Vital Signs Date Time Temp Pulse Resp B/P B/P Pulse O2 O2 Flow FiO2 Mean Ox Delivery Rate 01/20 0824 66 118/72 01/20 0823 66 118/72 01/20 0658 97.9 64 18 136/86 94 Nasal Cannula 01/20 0000 Nasal 2.0L Cannula 01/19 2207 98.2 60 24 136/80 94 01/19 2158 60 122/86 01/19 1632 Nasal 2.0L Cannula 01/19 1500 98.5 62 20 118/60 96 01/19 1439 97.4 58 20 141/88 95 Nasal 2.0L Cannula 01/19 1338 98.1 62 20 130/76 01/19 1252 98.1 62 20 130/76 95 Nasal 2.0L Cannula Intake & Output 01/20 1600 01/20 0800 01/20 0000 Intake Total 50 450 Output Total 300 Balance 50 150 Intake, Oral 50 450 Output, Urine 300 Patient 280 lb Weight Weight Reported by Patient Measurement Method Physical Exam General Appearance: Alert, Oriented X3, Cooperative, No Acute Distress Skin: No Rashes, No Breakdown Skin Temp/Moisture Exam: Warm/Dry Sepsis Skin Exam (color): Normal for Ethnicity HEENT: Atraumatic, Mucous Membr. moist/pink Neck: Supple, No JVD Cardiovascular: Regular Rate, Normal S1, Normal S2, No Murmurs Lungs: Clear to Auscultation, Normal Air Movement Abdomen: Normal Bowel Sounds, Soft, No Tenderness, OBESE Neurological: Normal Speech, Normal Tone Extremities: No Clubbing, No Cyanosis, MILD EDEMA Current Medications: Current Medications Sig/Kennedy Start time Last Medication Dose Route Stop Time Status Admin Albuterol Sulfate 2 PUF Q4-6 PRN PRN 01/19 1230 AC INH Amiodarone HCl 400 MG DAILY 01/19 1230 AC 01/20 PO 0823 Cefuroxime Sodium 500 MG Q12 01/19 2100 AC 01/20 PO 0824 Cyanocobalamin 1,000 MCG DAILY 01/19 1224 AC 01/20 PO 0823 Dabigatran 150 MG BID 01/19 1229 AC 01/20 PO 0824 Diltiazem HCl 120 MG DAILY 01/19 1232 AC 01/20 PO 0824 Doxycycline Hyclate 100 MG ONCE ONE 01/19 0900 DC 01/19 Sodium Chloride 100 ML IV 01/19 1005 0959 Levothyroxine Sodium 0.05 MG DAILY AC 01/19 1225 AC 01/20 PO 0529 Omeprazole 40 MG DAILY AC 01/19 1230 DC PO Pantoprazole Sodium 0 .STK-MED ONE 01/19 1445 DC IV Pantoprazole Sodium 40 MG DAILY 01/19 1329 AC 01/20 IV 0824 Paroxetine HCl 20 MG DAILY 01/19 1225 AC 01/20 PO 0825 Potassium Chloride 0 .STK-MED ONE 01/19 1327 DC PO Potassium Chloride 40 MEQ ONCE ONE 01/19 1230 DC 01/19 PO 01/19 1231 1338 Tamsulosin HCl 0.4 MG DAILY 01/19 1225 AC 01/20 PO 0824 Last 24 Hrs of Lab/Héctor Results Last 24 Hrs of Labs/Mics: Laboratory Tests 01/20/18 0545: Anion Gap 5, Estimated GFR > 60, BUN/Creatinine Ratio 17.0, CBC w Diff NO MAN DIFF REQ, RBC 3.73 L, MCV 91.6, MCH 31.0, MCHC 33.9, RDW 14.9 H, MPV 7.5, Gran % 69.3, Lymphocytes % 20.8, Monocytes % 6.9, Eosinophils % 2.7, Basophils % 0.3, Absolute Granulocytes 4.6, Absolute Lymphocytes 1.4, Absolute Monocytes 0.5, Absolute Eosinophils 0.2, Absolute Basophils 0 01/19/18 1432: Troponin I < 0.01 Assessment/Plan Assessment: This is a 82-year-old male with a past medical history significant for paroxysmal A. fib on amiodarone, pradaxa, and diltiazem, COPD, BPH, hypothyroidism on levothyroxine, GERD that presents with complaints of palpitations and increasing shortness of breath with minimal exertion. The patient also complained of a dry cough and a right headache during last week. The patient was supposed to have a cardiac workup done this week with his regular generating station mechanic. The patient notes a recent admission at [facility] for sepsis secondary to UTI, discharged on cefuroxime 500 mg twice a day. Paroxysmal A. fib Patient on presentation was tachycardic heart rate of 116 which upon admission changed to normal sinus rhythm and heart rate decreased to normal levels. Overnight patient has been in sinus rhythm and sinus bradycardia heart rate lowest is 56. He received 1 dose of IV rate control medications Cardizem 5 mg. Patient is now on oral home A. fib medication diltiazem CD 120 mg and amiodarone 400 mg. Continue to monitor on the telemetry. This patient is supposed to get an echocardiogram and generating station mechanic consult has been called we will follow-up for those. Hypothyroidism Patient has history of hypothyroidism and is on levothyroxine 0.05 mg which was started upon admission. Thyroid function workup showed TSH normal 1.9 slightly increased T4 1.99 and normal T3 at 0.79. Will continue with levothyroxine at the same dose. Normocytic anemia This patient takes dabigatran 150 mg twice a day. Review of his blood work has shown a significant drop in hemoglobin of around 3 in the past 1 month. We are guaiac in all stools so far patient has not had a bowel movement and reports there was no blood in the last bowel movement. We will continue to follow hemoglobin and guaiac all stools with intention to stop dabigatran if the patient is shown to be having blood in stool. History of urinary tract infection Patient was admitted and treated for UTI at [facility] and is still on oral UTI medication Ceftin 500 mg twice a day. Overnight patient remained afebrile and is on his UTI medication. WBC remains within normal range Problem List: 1. Rapid atrial fibrillation 2. Anemia 3. UTI (urinary tract infection) Pain Ratin Pain Location: None Pain Goal: Remain pain free Pain Plan: Tylenol PRN Tomorrow's Labs & Rationales: CBC continue to trend hemoglobin DVT/Prophylaxis: mechanical, pharmacological Ericka Salguero MD 01/20/18 1102: Attending MD Review Statement Attending Statement Attending MD Statement: examined this patient, discuss w/resident/PA/METAL TANK ERECTOR, agreed w/resident/PA/METAL TANK ERECTOR, reviewed EMR data (avail) Attending Assessment/Plan: Patient is awake, alert, pleasant, funny, cooperative, delightful, and energetic. He was able to walk around the floor with the nurse, becoming mildly short of breath towards the end, but did not have to stop. He currently feels well and has no complaints, denying chest pain, palpitations, lightheadedness, or SOB (which resolved after sitting for 5 seconds). He remains in sinus rhythm. Plan - Continue on telemetry - Follow cardiology recommendations - Continue home medications - DVT PPx
--- NOTE | 2018-01-20 10:20 | Cons- Cardiology ---
General Information and HPI Consulting Request Date of Consult: 01/20/18 Requested By: Ratna Clark MD Reason for Consult: SOB and PAF Source of Information: patient Exam Limitations: no limitations History of Present Illness: The patient is an 82-year-old male with a history of atrial flutter status post ablation, paroxysmal atrial fibrillation on Pradaxa, hypertension, COPD, BPH, hypothyroidism who now presents with palpitations and increasing shortness of breath. Patient states that he was admitted to [place] [facility] a few weeks ago for urinary sepsis. Patient gradually improved. On the day of discharge he developed left shoulder discomfort along with palpitations. He was found to be in atrial fibrillation and his amiodarone was increased and diltiazem was resumed. He was scheduled for an outpatient echo and stress test through Dr. Carol Ann vilchis gun repair clerk in [place]. He states on the day of admission again he developed a flushed feeling which is indicative of his atrial fibrillation. He also noted increasing shortness of breath on minimal exertion and therefore presented to the emergency room for evaluation. He states he does have a history of orthostatic hypotension with syncope. His diltiazem was discontinued but he still had episodes. Workup reportedly was negative. He follows with Dr. Steve vilchis manager hvac as an outpatient. He states that he now feels well and denies any palpitations. No further episodes of chest discomfort. He does have shortness of breath still with minimal exertion. He denies PND orthopnea. He does state he has obstructive sleep apnea but does not utilize CPAP. He does have intermittent edema and wears compression socks. Allergies/Medications Allergies: Coded Allergies: Latex, Natural Rubber (Intermediate, SEVERE RASHES 11/19/17) Sulfa (Sulfonamide Antibiotics) (Mild, RASH 11/19/17) nitroglycerin (From NITRO-BID) (Mild, RASH 11/19/17) polymyxin B (Mild, UNKNOWN 11/19/17) trimethoprim (Mild, UNKNOWN 11/19/17) omeprazole (From PRILOSEC) (UNKNOWN 11/19/17) Home Med List: Albuterol Sulfate (Ventolin Hfa) 90 MCG HFA.AER.AD 2 PUF INH Q4-6 PRN PRN SHORTNESS OF BREATH (Reported) Amiodarone HCl 400 MG TABLET 1 TAB PO DAILY AFIB (Reported) Cefuroxime Axetil (Cefuroxime) 500 MG TABLET 1 TAB PO BID UTI (Reported) Cranberry Conc/Ascorbic Acid (Cranberry Plus Vitamin C Sftgl) 4,200 MG-20 MG CAPSULE 1 CAP PO DAILY VITAMIN SUPPORT (Reported) Cyanocobalamin (Vitamin B-12) 1,000 MCG TABLET 1 TAB PO DAILY VITAMIN SUPPORT (Reported) Dabigatran Etexilate Mesylat (Pradaxa) 150 MG CAPSULE 1 CAP PO BID BLOOD THINNER (Reported) Lactobacillus Acidophilus (Acidophilus) 1 EACH CAPSULE 2 CAP PO DAILY PROBIOTIC Levothyroxine Sodium 50 MCG TABLET 1 TAB PO DAILY AC THYROID (Reported) Multivitamin (Daily Multiple Vitamin) 1 EACH TABLET 1 TAB PO DAILY VITAMIN SUPPORT (Reported) Pantoprazole Sodium 40 MG TABLET.DR 1 TAB PO DAILY GI (Reported) Paroxetine HCl 20 MG TABLET 1 TAB PO DAILY MENTAL HEALTH (Reported) Tamsulosin HCl 0.4 MG CAP.ER.24H 1 CAP PO DAILY PROSTATE (Reported) Current Medications: Current Medications Sig/Kennedy Start time Last Medication Dose Route Stop Time Status Admin Albuterol Sulfate 2 PUF Q4-6 PRN PRN 01/19 1230 AC INH Amiodarone HCl 400 MG DAILY 01/19 1230 AC 01/20 PO 0823 Cefuroxime Sodium 500 MG Q12 01/19 2100 AC 01/20 PO 0824 Cyanocobalamin 1,000 MCG DAILY 01/19 1224 AC 01/20 PO 0823 Dabigatran 150 MG BID 01/19 1229 AC 01/20 PO 0824 Diltiazem HCl 120 MG DAILY 01/19 1232 AC 01/20 PO 0824 Levothyroxine Sodium 0.05 MG DAILY AC 01/19 1225 AC 01/20 PO 0529 Omeprazole 40 MG DAILY AC 01/19 1230 DC PO Pantoprazole Sodium 0 .STK-MED ONE 01/19 1445 DC IV Pantoprazole Sodium 40 MG DAILY 01/19 1329 AC 01/20 IV 0824 Paroxetine HCl 20 MG DAILY 01/19 1225 AC 01/20 PO 0825 Potassium Chloride 0 .STK-MED ONE 01/19 1327 DC PO Potassium Chloride 40 MEQ ONCE ONE 01/19 1230 DC 01/19 PO 01/19 1231 1338 Tamsulosin HCl 0.4 MG DAILY 01/19 1225 AC 01/20 PO 0824 Review of Systems Review of Systems: Eyes no blurred or double vision Ears no deafness or ringing Nose and throat no recurrent sinusitis Lungs per history of present illness Heart per history of present illness Abdomen no nausea vomiting Musculoskeletal occasional muscle and joint pains Psych no anxiety or depression Neuro without recurrent headache or seizures Endocrine no heat or cold intolerance Past History Travel History Traveled to [place] past 21 day No Medical History Blood Transfusion Hx: No Neurological: NONE EENT: NONE, hearing loss, CATARACTS REMOVED Cardiovascular: AFIB Respiratory: COPD Gastrointestinal: GERD Hepatic: NONE Renal: benign prost hyperplasia Musculoskeletal: rheumatoid arthritis Psychiatric: anxiety Endocrine: hypothyroidism Blood Disorders: NONE Cancer(s): MELANOMA REMOVED 2013 TO L.LOWER LIP BULK CLERK/Reproductive: NONE Surgical History Surgical History: non-contributory Psychosocial History Where Do You Live? Home Smoking Status: Former Smoker ETOH Use: denies use Illicit Drug Use: denies illicit drug use Exam & Diagnostic Data Vital Signs and I&O Vital Signs Date Time Temp Pulse Resp B/P B/P Pulse O2 O2 Flow FiO2 Mean Ox Delivery Rate 01/20 0824 66 118/72 01/20 0823 66 118/72 01/20 0658 97.9 64 18 136/86 94 Nasal Cannula 01/20 0000 Nasal 2.0L Cannula 01/19 2207 98.2 60 24 136/80 94 01/19 2158 60 122/86 01/19 1632 Nasal 2.0L Cannula 01/19 1500 98.5 62 20 118/60 96 01/19 1439 97.4 58 20 141/88 95 Nasal 2.0L Cannula 01/19 1338 98.1 62 20 130/76 01/19 1252 98.1 62 20 130/76 95 Nasal 2.0L Cannula Intake & Output 01/20 1600 01/20 0801/20 0000 01/19 1600 01/19 0000 Intake Total 50 450 Output Total 300 300 Balance 50 150 -300 Intake, Oral 50 450 Output, Urine 300 300 Patient 280 lb 192 lb Weight Weight Reported by Patient Measurement Method Physical Exam: Patient is a well-developed well-nourished male appearing in no acute distress HEENT is unremarkable Neck is supple there is no JVD Lungs are clear Heart regular rhythm S1 and S2 are normal no gallops or rubs 1/6 ejection murmur left sternal border Abdomen bowel sounds positive Extremities trace edema Labs/Héctor Results: Laboratory Tests 01/20 01/19 01/19 9423 [id number] Chemistry Sodium (137 - 145 mmol/L) 138 Potassium (3.5 - 5.1 mmol/L) 4.0 Chloride (98 - 107 mmol/L) 102 Carbon Dioxide (22 - 30 mmol/L) 31 H Anion Gap (5 - 16) 5 BUN (9 - 20 mg/dL) 17 Creatinine (0.7 - 1.2 mg/dL) 1.0 Estimated GFR (>60 ml/min) > 60 BUN/Creatinine Ratio (7 - 25 %) 17.0 Troponin I (<0.11 ng/ml) < 0.01 < 0.01 Hematology CBC w Diff NO MAN DIFF REQ WBC (4.8 - 10.8 /CUMM) 6.6 RBC (4.70 - 6.10 /CUMM) 3.73 L Hgb (14.0 - 18.0 G/DL) 11.6 L Hct (42 - 52 %) 34.2 L MCV (80.0 - 94.0 FL) 91.6 MCH (27.0 - 31.0 PG) 31.0 MCHC (33.0 - 37.0 G/DL) 33.9 RDW (11.5 - 14.5 %) 14.9 H Plt Count (130 - 400 /CUMM) 293 MPV (7.4 - 10.4 FL) 7.5 Gran % (42.2 - 75.2 %) 69.3 Lymphocytes % (20.5 - 51.1 %) 20.8 Monocytes % (1.7 - 9.3 %) 6.9 Eosinophils % (0 - 5 %) 2.7 Basophils % (0.0 - 2.0 %) 0.3 Absolute Granulocytes (1.4 - 6.5 /CUMM) 4.6 Absolute Lymphocytes (1.2 - 3.4 /CUMM) 1.4 Absolute Monocytes (0.10 - 0.60 /CUMM) 0.5 Absolute Eosinophils (0.0 - 0.7 /CUMM) 0.2 Absolute Basophils (0.0 - 0.2 /CUMM) 0 01/19 01/19 3960 [id number] Chemistry Sodium (137 - 145 mmol/L) 140 Potassium (3.5 - 5.1 mmol/L) 3.4 L Chloride (98 - 107 mmol/L) 102 Carbon Dioxide (22 - 30 mmol/L) 29 Anion Gap (5 - 16) 8 BUN (9 - 20 mg/dL) 18 Creatinine (0.7 - 1.2 mg/dL) 0.9 Estimated GFR (>60 ml/min) > 60 BUN/Creatinine Ratio (7 - 25 %) 20.0 Glucose (65 - 99 mg/dL) 121 H Calcium (8.4 - 10.2 mg/dL) 8.3 L Total Bilirubin (0.2 - 1.3 mg/dL) 1.0 AST (17 - 59 U/L) 46 ALT (21 - 72 U/L) 70 Alkaline Phosphatase (< 127 U/L) 37 Troponin I (<0.11 ng/ml) < 0.01 Total Protein (6.3 - 8.2 g/dL) 6.5 Albumin (3.5 - 5.0 g/dL) 3.5 Globulin (1.9 - 4.2 gm/dL) 3.0 Albumin/Globulin Ratio (1.1 - 2.2 %) 1.2 TSH (0.270 - 4.200 uIU/mL) 1.920 Free T4 (0.85 - 1.93 ng/dL) 1.99 H Thyroxine (T4) (4.5 - 10.9 ug/dL) 9.5 Total T3 (0.97 - 1.69 ng/mL) 0.79 L Coagulation D-Dimer High Sensitivty (0 - 243 ng/ml) 315 H Hematology CBC w Diff NO MAN DIFF REQ WBC (4.8 - 10.8 /CUMM) 7.1 RBC (4.70 - 6.10 /CUMM) 3.79 L Hgb (14.0 - 18.0 G/DL) 11.7 L Hct (42 - 52 %) 34.7 L MCV (80.0 - 94.0 FL) 91.7 MCH (27.0 - 31.0 PG) 31.0 MCHC (33.0 - 37.0 G/DL) 33.8 RDW (11.5 - 14.5 %) 14.7 H Plt Count (130 - 400 /CUMM) 302 MPV (7.4 - 10.4 FL) 7.0 L Gran % (42.2 - 75.2 %) 66.6 Lymphocytes % (20.5 - 51.1 %) 22.8 Monocytes % (1.7 - 9.3 %) 7.4 Eosinophils % (0 - 5 %) 2.7 Basophils % (0.0 - 2.0 %) 0.5 Absolute Granulocytes (1.4 - 6.5 /CUMM) 4.7 Absolute Lymphocytes (1.2 - 3.4 /CUMM) 1.6 Absolute Monocytes (0.10 - 0.60 /CUMM) 0.5 Absolute Eosinophils (0.0 - 0.7 /CUMM) 0.2 Absolute Basophils (0.0 - 0.2 /CUMM) 0 Diagnostic Data EKG Results Sinus rhythm incomplete right bundle branch block left anterior hemiblock CXR Results IMPRESSION: Small pleural effusions. Increased hazy right basilar opacity may represent atelectasis or pneumonia. Assessment/Plan Assessment/Plan 1. Paroxysmal atrial fibrillation on amiodarone, diltiazem, and Pradaxa. Currently in sinus rhythm 2. Dyspnea possibly secondary to pneumonia versus cardiac. He also has COPD which may be a contributing factor. 3. Hypertension 4. Status post a flutter ablation 5. BPH 6. Obstructive sleep apnea he does not utilize CPAP Recommendations 1. I would continue his current medications 2. Would obtain copy of recent testing from his primary gun repair clerk in [place] 3. Would obtain an echocardiogram to assess his overall LV function 4. If he remains stable we will plan for an outpatient nuclear stress test. 5. I had a long discussion with the patient regarding follow-up. He states he lives in [place] and would prefer to follow-up with me since we have an office there. I provided him with my card with contact information. Thank you for allowing [facility] to participate in the care of your patient. Consult Acknowledgment - Thank you for your consult request.
[2018-01-20 14:43] VITALS: BP 118/62
[2018-01-20 22:06] VITALS: BP 144/84
[2018-01-21 06:40] VITALS: BP 118/86
--- NOTE | 2018-01-21 07:14 | ECHOCARDIOGRAM REPORT ---
AMBER FOLEY Age: 82 : 1935 Gender: M Exam Date: 01/20/2018 17:19 Exam Location: 1 [address] Ht (in): 74 Wt (lb): 192 BSA: 2.14 BP: 118 / 72 Ordering Physician: Ana Rosa Foss MD Referring Physician: Adolfo Kelly MD Technologist: Marta Crowe [facility] Room Number: 187 Indications: Afib/flutter Rhythm: Sinus Technical Quality: fair FINDINGS Left Ventricle Normal size left ventricle. Left ventricular wall thickness mildly increased. Normal left ventricular ejection fraction estimated at 60-65%. Right Ventricle Normal right ventricular size and function. Right Atrium Normal right atrial size. Left Atrium Mild left atrial dilatation. Mitral Valve Mild mitral annular calcification. Mild mitral regurgitation. Aortic Valve Aortic valve not well visualized, grossly normal. Tricuspid Valve Tricuspid valve is normal in structure and function. Mild tricuspid regurgitation. Right ventricular systolic pressure estimated to be within the normal range at 35 mmHg. Pulmonic Valve Pulmonic valve not well visualized, grossly normal. Pericardium No pericardial effusion. Great Vessels Normal size aortic root. CONCLUSIONS Normal left ventricular systolic function with mild concentric hypertrophy. Mild left atrial enlargement.No significant valvular abnormalities noted Adolfo Kelly M.D. (Electronically Signed) Final Date: 21 January 2018 07:13 MEASUREMENTS (Male / Female) Normal Values 2D ECHO LV Diastolic Diameter PLAX 5.4 cm 4.2 - 5.9 / 3.9 - 5.3 cm LV Systolic Diameter PLAX 3.5 cm 2.1 - 4.0 cm LV Fractional Shortening PLAX 35.2 % 25 - 46 % LV Ejection Fraction 2D Teich 64.0 % IVS Diastolic Thickness 1.5 cm LVPW Diastolic Thickness 1.5 cm LV Relative Wall Thickness 0.6 RV Internal Dim ED PLAX 3.3 cm 1.9 - 3.8 cm LVOT Diameter 2.4 cm Aortic Root Diameter 3.5 cm LA Systolic Diameter LX 4.4 cm 3.0 - 4.0 / 2.7 - 3.8 cm LA Volume 71.0 cm 18 - 58 / 22 - 52 cm Ascending Aorta Diameter 3.6 cm DOPPLER AV Peak Velocity 184.0 cm/s AV Peak Gradient 13.5 mmHg AV Mean Velocity 122.0 cm/s AV Mean Gradient 7.0 mmHg AV Velocity Time Integral 38.4 cm LVOT Peak Velocity 105.0 cm/s LVOT Peak Gradient 4.4 mmHg LVOT Mean Velocity 68.5 cm/s LVOT Mean Gradient 2.0 mmHg LVOT Velocity Time Integral 21.4 cm LVOT Stroke Volume 96.8 cm AV Area Cont Eq vti 2.5 cm AV Area Cont Eq pk 2.6 cm MV Peak Velocity 98.3 cm/s MV Peak Gradient 3.9 mmHg MV Mean Velocity 52.9 cm/s MV Mean Gradient 1.0 mmHg Mitral E Point Velocity 58.2 cm/s Mitral A Point Velocity 90.8 cm/s Mitral E to A Ratio 0.6 MV PHT Velocity 73.0 cm/s MV Deceleration Randolph 228.0 cm/s MV Pressure Half Time 96.1 ms MV Area PHT 2.3 cm MV Deceleration Time 341.0 ms TR Peak Velocity 252.0 cm/s TR Peak Gradient 25.4 mmHg Right Atrial Pressure 5.0 mmHg Pulmonary Artery Systolic Pressure 30.4 mmHg Right Ventricular Systolic Pressure 30.4 mmHg PV Peak Velocity 119.0 cm/s PV Peak Gradient 5.7 mmHg PV Mean Velocity 81.3 cm/s PV Mean Gradient 3.0 mmHg PV Velocity Time Integral 21.7 cm LV E' Lateral Velocity 4.5 cm/s Mitral E to LV E' Lateral Ratio 13.0 LV E' Septal Velocity 6.8 cm/s Mitral E to LV E' Septal Ratio 8.5
--- NOTE | 2018-01-21 08:07 | PN- Housestaff ---
Subjective Follow-up For: afib normocytic anemia recent UTI Subjective: Patient evaluated this morning. He denies any symptoms including chest pain, shortness of breath, palpitations, dizziness. The patient had stable vitals overnight. Denies any dysuria or suprapubic/back pain. Review of Systems Constitutional: Reports: no symptoms. Cardiovascular: Reports: no symptoms. Respiratory: Reports: no symptoms. Gastrointestinal: Reports: no symptoms. Musculoskeletal: Reports: no symptoms. Neurological/Psychological: Reports: no symptoms. Objective Last 24 Hrs of Vital Signs/I&O Vital Signs Date Time Temp Pulse Resp B/P B/P Pulse O2 O2 Flow FiO2 Mean Ox Delivery Rate 01/21 08 72 118/86 01/21 0817 72 118/86 01/21 0640 98.4 70 18 118/86 93 Room Air 01/20 2206 98.6 67 16 144/84 93 01/20 1443 97.6 61 18 118/62 92 Room Air Intake & Output 01/21 1600 01/21 0800 01/21 0000 Intake Total 120 340 Output Total Balance 120 340 Intake, Oral 120 340 Patient 293 lb Weight Physical Exam General Appearance: Alert, Oriented X3, Cooperative, No Acute Distress Skin: No Breakdown Skin Temp/Moisture Exam: Warm/Dry Sepsis Skin Exam (color): Normal for Ethnicity Cardiovascular: Regular Rate, Normal S1, Normal S2, No Murmurs Lungs: Clear to Auscultation, Normal Air Movement Abdomen: Normal Bowel Sounds, Soft, No Tenderness Neurological: Normal Speech Extremities: No Clubbing, No Cyanosis, No Edema Vascular: Normal Pulses, Pulses Symmetrical Current Medications: Current Medications Sig/Kennedy Start time Last Medication Dose Route Stop Time Status Admin Albuterol Sulfate 2 PUF Q4-6 PRN PRN 01/19 1230 DCD INH Amiodarone HCl 400 MG DAILY 01/19 1230 DCD 01/21 PO 0817 Cefuroxime Sodium 500 MG Q12 01/19 2100 DCD 01/21 PO 0818 Cyanocobalamin 1,000 MCG DAILY 01/19 1224 DCD 01/21 PO 0817 Dabigatran 150 MG BID 01/19 1229 DCD 01/21 PO 0818 Diltiazem HCl 120 MG DAILY 01/19 1232 DCD 01/21 PO 0817 Diphenhydramine HCl 1 EMA DAILY NEEDED 01/20 1845 DCD 01/21 TOP 0818 Levothyroxine Sodium 0.05 MG DAILY AC 01/19 1225 DCD 01/21 PO 0615 Omeprazole 40 MG DAILY AC 01/21 0838 DCD 01/21 PO 0926 Pantoprazole Sodium 40 MG DAILY 01/19 1329 DC 01/20 IV 0824 Paroxetine HCl 20 MG DAILY 01/19 1225 DCD 01/21 PO 0818 Tamsulosin HCl 0.4 MG DAILY 01/19 1225 DCD 01/21 PO 0818 Last 24 Hrs of Lab/Héctor Results Last 24 Hrs of Labs/Mics: Laboratory Tests 01/21/18625: CBC w Diff NO MAN DIFF REQ, RBC 3.94 L, MCV 92.7, MCH 31.0, MCHC 33.4, RDW 14.5 , MPV 7.7, Gran % 71.2, Lymphocytes % 19.8 L, Monocytes % 5.8, Eosinophils % 2.8, Basophils % 0.4, Absolute Granulocytes 4.6, Absolute Lymphocytes 1.3, Absolute Monocytes 0.4, Absolute Eosinophils 0.2, Absolute Basophils 0 Assessment/Plan Assessment: This is a 82-year-old male with a past medical history significant for paroxysmal A. fib on amiodarone, pradaxa, and diltiazem, COPD, BPH, hypothyroidism on levothyroxine, GERD that presents with complaints of palpitations and increasing shortness of breath with minimal exertion. The patient also complained of a dry cough and a right headache during last week. 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 The patient notes a recent admission at [facility] for sepsis secondary to UTI, discharged on cefuroxime 500 mg twice a day. Paroxysmal A. fib Patient on presentation was tachycardic heart rate of 116 which upon admission changed to normal sinus rhythm and heart rate decreased to normal levels. Overnight patient has been in sinus rhythm, previous night he was bradycardic to 56. He received 1 dose of IV rate control medications Cardizem 5 mg on admission. Patient is now on oral home A. fib medication diltiazem CD 120 mg and amiodarone 400 mg. Patient will be discharged today. Echocardiogram has returned as normal. The patient will follow up with Dr. Goldberg for outpatient nuclear stress test. The patient used to follow-up with Dr. Donovan Rodríguez, but patient would like to follow-up with a doctor that comes to [facility]. Of note, the patient notes that he still feels dyspneic even though he is satting at 93% on room air. The patient does have a history of COPD and we will refer him for follow-up with Dr. Charlton. The patient does not have a chief mechanical officer. Hypothyroidism Patient has history of hypothyroidism and is on levothyroxine 0.05 mg which was started upon admission. Thyroid function workup showed TSH normal 1.9 slightly increased T4 1.99 and normal T3 at 0.79. Will continue with levothyroxine at the same dose and patient can follow-up with his PCP. Normocytic anemia This patient takes dabigatran 150 mg twice a day. Review of his blood work has shown a significant drop in hemoglobin of around 3 in the past 1 month. We are guaiacing all stools so far patient has not had a bowel movement and reports there was no blood in the last bowel movement. We will continue to follow hemoglobin and guaiac all stools with intention to stop dabigatran if the patient is shown to be having blood in stool. Patient has denied blood in his bowel movements or dark stools leading up to admission here. History of urinary tract infection Patient was admitted and treated for UTI at [facility] and is still on oral UTI medication Ceftin 500 mg twice a day. Overnight patient remained afebrile and is on his UTI medication. WBC remains within normal range. Patient will continue his outpatient Ceftin 500 mg twice a day until January 30. Regular diet Patient is full code DVT prophylaxis with Alps and Pradaxa Problem List: 1. UTI (urinary tract infection) 2. COPD (chronic obstructive pulmonary disease) 3. Atrial fibrillation 4. Anemia Pain Ratin Pain Location: na Pain Goal: Remain pain free Pain Plan: na Tomorrow's Labs & Rationales: na
[2018-01-21 08:13] LABS: ABSOLUTE BASOPHIL COUNT 0 /CUMM (0.0-0.2); ABSOLUTE EOSINOPHIL COUNT 0.2 /CUMM (0.0-0.7); ABSOLUTE GRANULOCYTE CT 4.6 /CUMM (1.4-6.5); ABSOLUTE LYMPH COUNT 1.3 /CUMM (1.2-3.4); ABSOLUTE MONOCYTE COUNT 0.4 /CUMM (0.10-0.60); BASOPHIL % 0.4 % (0.0-2.0); EOSINOPHIL % 2.8 % (0-5); GRANULOCYTE % 71.2 % (42.2-75.2); HEMATOCRIT 36.5 % (42-52); MEAN CORPUSCULAR HGB CONC 33.4 G/DL (33.0-37.0); MEAN CORPUSCULAR VOLUME 92.7 FL (80.0-94.0); MEAN PLATELET VOLUME 7.7 FL (7.4-10.4); PLATELET COUNT 290 /CUMM (130-400); RBC DISTRIBUTION WIDTH 14.5 % (11.5-14.5); RED BLOOD CELL CT 3.94 /CUMM (4.70-6.10); WHITE BLOOD CELL COUNT 6.4 /CUMM (4.8-10.8)
[2018-01-21 08:18] VITALS: BP 118/86
[2018-01-21] MEDS ORDERED: AMIODARONE HCL200 M2 PO (09:07)
[2018-01-21] MEDS ORDERED: AMIODARONE HCL100 M1 PO (09:08)
[2018-01-21] MEDS ORDERED: CEFUROXIME500 MG PO (10:14)
[2018-01-21] MEDS ORDERED: CARTIA XT120 M1 PO (10:21)
--- NOTE | 2018-01-21 10:29 | Patient Discharge Instructions ---
Discharge Instructions General Discharge Information You were seen/treated for: AFIB Special Instructions: 1. PLEASE FOLLOW UP WITH PCP IN ONE WEEK - especially for workup of anemia. 2. PLEASE FOLLOW UP WITH CARDIOLOGY IN ONE WEEK FOR OUTPATIENT STRESS TEST 3. PLEASE FOLLOW UP WITH ATTENDANT HONOR BAR IN ONE WEEK FOR CONTINUED FEELINGS OF SHORTNESS OF BREATH. Diet Continue normal diet: Yes Activity Full Activity/No Limits: Yes Acute Coronary Syndrome Inclusion Criteria At DC or during hospital stay patient has or had the following: ACS DIAGNOSIS No Discharge Core Measures Meds if any: Prescribed or Continued at Discharge Meds if any: NOT Prescribed or Continued at Discharge Congestive Heart Failure Inclusion Criteria At DC or during hospital stay patient has or had the following: CHF DIAGNOSIS No Discharge Core Measures Meds if any: Prescribed or Continued at Discharge Meds if any: NOT Prescribed or Continued at Discharge Cerebrovascular accident Inclusion Criteria At DC or during hospital stay patient has or had the following: CVA/TIA Diagnosis No Discharge Core Measures Meds if any: Prescribed or Continued at Discharge Meds if any: NOT Prescribed or Continued at Discharge Venous thromboembolism Inclusion Criteria VTE Diagnosis No VTE Type NONE VTE Confirmed by (Test) NONE Discharge Core Measures - Per Current guidelines, there needs to be overlap - treatment for the first 5 days of Warfarin therapy. - If discharged on Warfarin prior to 5 days of - overlap therapy, the patient will need to be - assessed for post discharge needs including - *Post discharge parental anticoagulation - *Warfarin and/or parental anticoagulation education - *Follow up date to check INR post discharge At least 5 days overlap therapy as Inpatient No Meds if any: Prescribed or Continued at Discharge Note: Overlap Therapy is Warfarin and Anticoagulant Meds if any: NOT Prescribed or Continued at Discharge
--- NOTE | 2018-01-21 15:26 | Discharge Summary ---
Hospital Course Allergies: Coded Allergies: Latex, Natural Rubber (Intermediate, SEVERE RASHES 11/19/17) Sulfa (Sulfonamide Antibiotics) (Mild, RASH 11/19/17) nitroglycerin (From NITRO-BID) (Mild, RASH 11/19/17) polymyxin B (Mild, UNKNOWN 11/19/17) trimethoprim (Mild, UNKNOWN 11/19/17) omeprazole (From PRILOSEC) (UNKNOWN 11/19/17) Discharge Instructions Medications at Discharge Discharge Medications: Stop taking the following medications: Amiodarone HCl (Amiodarone HCl) 200 MG TABLET ORAL EVERY 48 HOURS (Every 2 days) Qty = 69 Amiodarone HCl (Amiodarone HCl) 100 MG TABLET ORAL EVERY 48 HOURS (Every 2 days) Continue taking these medications: Dabigatran Etexilate Mesylat (Pradaxa) 150 MG CAPSULE 1 Capsule ORAL TWICE DAILY Qty = 180 Comments: Last Taken:01/21/18 Time:817 Tamsulosin HCl (Tamsulosin HCl) 0.4 MG CAP.ER.24H 1 Capsule ORAL DAILY Qty = 90 Comments: Last Taken:01/21/18 Time:817 Pantoprazole Sodium (Pantoprazole Sodium) 40 MG TABLET.DR 1 Tablet ORAL DAILY Qty = 90 Paroxetine HCl (Paroxetine HCl) 20 MG TABLET 1 Tablet ORAL DAILY Qty = 90 Comments: Last Taken:01/21/18 Time:817 Levothyroxine Sodium (Levothyroxine Sodium) 50 MCG TABLET 1 Tablet ORAL DAILY BEFORE BREAKFAST Qty = 90 Comments: Last Taken:01/21/18 Time:614 Albuterol Sulfate (Ventolin Hfa) 90 MCG HFA.AER.AD 2 Puff Inhale through mouth EVERY 4-6 HOURS NEEDED as needed for SHORTNESS OF BREATH Qty = 18 Comments: not given in hospital Multivitamin (Daily Multiple Vitamin) 1 EACH TABLET 1 Tablet ORAL DAILY Cyanocobalamin (Vitamin B-12) 1,000 MCG TABLET 1 Tablet ORAL DAILY Comments: Last Taken:01/21/18 Time:08 Cranberry Conc/Ascorbic Acid (Cranberry Plus Vitamin C Sftgl) 4,200 MG-20 MG CAPSULE 1 Capsule ORAL DAILY Comments: not given in hospital Amiodarone HCl (Amiodarone HCl) 400 MG TABLET 1 Tablet ORAL DAILY Qty = 30 Comments: Last Taken:01/21/18 Time:816 Diltiazem HCl (Cartia Xt) 120 MG CAP.ER.24H 1 Capsule ORAL DAILY Qty = 30 The following medications have been changed: Old: Cefuroxime Axetil (Cefuroxime) 500 MG TABLET 1 Tablet ORAL TWICE DAILY Qty = 28 New: Cefuroxime Axetil (Cefuroxime) 500 MG TABLET 1 Tablet ORAL TWICE DAILY Qty = 28 Instructions: CONTINUE UNTIL 01/30/18 (WILL BE TOTAL 14 DAYS TREATMENT (28 DOSES)) Comments: Last Taken:01/21/18 Time:817 Old: Lactobacillus Acidophilus (Acidophilus) 1 EACH CAPSULE 1 Capsule ORAL DAILY Qty = 28 New: Lactobacillus Acidophilus (Acidophilus) 1 EACH CAPSULE 2 Capsule ORAL DAILY Qty = 28 Comments: not given in hospital
== END 2018-01-21 11:58 | DRG 309 ==
LOC: ERH 03:15 → ERHI 08:47 → 1NO 08:47 → EDBEDREQ 11:01 → ENRESERV 13:09 → ENTRNSPT 14:37 → EDTRNSPT 14:54 → EDTRNSPTSTS 14:54 → EDTRNSPT 14:57 → 1NO 15:05 → CMPTRNSPT 15:30 → 1NO 20:18 → ENPENDDIS 01-21 10:34 → ENTRNSPT 01-21 11:45 → EDTRNSPTSTS 01-21 11:46 → CMPTRNSPT 01-21 11:49 → 1NO 01-21 11:58
PROVIDERS: Preventive Medicine Public Health & General Preventive Medicine; Student in an Organized Health Care Education/Training Program
DX: I48.0 Paroxysmal atrial fibrillation (principal); N39.0 Urinary tract infection, site not specified; Z79.01 Long term (current) use of anticoagulants; D64.9 Anemia, unspecified; J44.9 Chronic obstructive pulmonary disease, unspecified; E03.9 Hypothyroidism, unspecified; G47.33 Obstructive sleep apnea (adult) (pediatric); K21.9 Gastro-esophageal reflux disease without esophagitis
CPT/HCPCS: 1NP; 36415; 71046; 82436; 87040; 93005; 93010; 93306; J0713; J3490